=== PATIENT | male | born 1935 | race Caucasian/White ===

== ENCOUNTER 2016-11-25 18:54 | Emergency (ER) | payer SELFPAY ==
[~2016-11-25] VITALS: Ht 172.7 cm; Wt 54.4 kg
[2016-11-25 19:40] LABS: Basophils # (auto) 0 uL; Basophils % (auto) 0.4 % (0.0-2.0); Eosinophils # (auto) 0 uL; Eosinophils % (auto) 0.4 % (0.0-7.0); Hematocrit 43.3 % (41.0-53.0); Hemoglobin 14.8 g/dL (13.5-17.5); Lymphocytes # (auto) 1.4 uL; Lymphocytes % (auto) 21.7 % (10.0-50.0); Mean Corpuscular Hemoglobin 29.5 pg (28.0-32.0); Mean Corpuscular Hgb Conc. 34.1 g/dL (32.0-36.0); Mean Corpuscular Volume 86.6 fL (80.0-100.0); Mean Platelet Volume 8.5 fL (7.4-10.4); Monocytes # (auto) 0.3 uL; Monocytes % (auto) 4.6 % (0.0-12.0); Neutrophils # (auto) 4.8 uL; Neutrophils % (auto) 72.9 % (37.0-80.0); Platelet Count (auto) 282 10^3/uL (140-450); Red Cell Distribution Width 12.9 % (11.6-16.0); White Blood Cell 6.6 10^3/uL (4.4-10.8)
[2016-11-25 19:54] LABS: INR 1.05 (0.9-1.15); Partial Thromboplastin Time 26.8 sec (22.64-33.71); Prothrombin Time 10.8 sec (9.37-12.3)
[2016-11-25 20:01] LABS: Albumin 3.7 g/dL (3.4-5.0); Anion Gap 8 (5-15); Aspartate Aminotransferase 22 U/L (15-37); BUN/Creatinine Ratio 25.5; Blood Urea Nitrogen 28 mg/dL (7-18); Calcium 8.7 mg/dL (8.5-10.1); Carbon Dioxide 28 mmol/L (21-32); Chloride 104 mmol/L (98-107); GFR African American 82 mL/min; GFR Non-African American 68 mL/min; Glucose 115 mg/dL (74-106); Magnesium 2.3 mg/dL (1.6-2.6); Sodium 140 mmol/L (136-145)
[2016-11-25 20:06] LABS: Alkaline Phosphatase 119 U/L (45-117); Bilirubin, Total 0.3 mg/dL (0.2-1.0); Total Protein 7.3 g/dL (6.4-8.2)
[2016-11-26 01:13] VITALS: BP 122/76
== END 2016-11-26 01:15 | disposition home or self-care (01) ==
LOC: ER 19:02
DX: G20 Parkinson's disease (principal); F41.9 Anxiety disorder, unspecified; F03.90 Unspecified dementia, unspecified severity, without behavioral disturbance, psychotic disturbance, mood disturbance, and anxiety; E11.9 Type 2 diabetes mellitus without complications; I10 Essential (primary) hypertension
CPT/HCPCS: 36415; 70450; 71010; 80053; 83735; 84484; 85025; 85610; 85730; 93005